=== PATIENT | female | born 1935 | race Caucasian/White ===

== ENCOUNTER → 2019-04-18 11:03 | Outpatient (CLI) | payer MEDICARE, MEDICAID ==
--- NOTE | 2019-04-22 09:28 | ST ---
PATIENT:JOVANNA LUNA MEDICAL RECORD: [id number] SEX: F LOCATION:[facility] ORDER #: ADMISSION DATE: 04/18/19 AGE OF PATIENT: 83 REFERRING PHYSICIAN: INTERPRETING PHYSICIAN: MAXIME WEI MD DATE OF SERVICE: 04/18/2019 PROCEDURE: Nuclear stress test. INDICATIONS: Angina, abnormal ECG, shortness of breath. She was exercised on standard Lexiscan protocol with 33 mCi of sestamibi injected at peak stress, 11 mCi used previously for rest images. FINDINGS: Gated SPECT reveals preserved ejection fraction at 74% with good wall motion and thickening and brightening throughout all segments. SPECT imaging: Cardiolite was used as myocardial perfusion agent. There is homogeneous uptake throughout all segments at rest and stress with no evidence of inducible ischemia or previous infarction. OVERALL IMPRESSION: 1. This is a normal nuclear stress test with no evidence of inducible ischemia or previous infarction. 2. Gated SPECT reveals a preserved ejection fraction at 74%. In this patient with ongoing symptomatology, the current scan does not suggest the presence of hemodynamically significant coronary artery disease. Evaluate noncardiac etiology of chest pain. TRANSINT:[id number] Voice Confirmation ID: [id number] DOCUMENT ID: [id number] MAXIME WEI MD at 0928 CC: HERNANDEZ KINGSTON [id number] DICTATION DATE: 04/19/19 0959 MILKING WORKER: 04/19/19 2143 DEP CLI 04/18/19 [facility] [address] [place] [address]
== END | disposition home or self-care (01) ==
LOC: D.HCCARDIO 11:03
PROVIDERS: ATTEND Internal Medicine Interventional Cardiology
DX: I20.9 Angina pectoris, unspecified (principal)

== ENCOUNTER → 2019-04-22 11:19 | Outpatient (CLI) | payer MEDICARE, MEDICAID ==
--- NOTE | 2019-04-23 14:43 | EC ---
PATIENT:JOVANNA LUNA DATE OF SERVICE: 04/22/19 SEX: F MEDICAL RECORD: [id number] DATE OF : 31 LOCATION:[facility] AGE OF PATIENT: 83 ADMISSION DATE: 04/22/19 REFERRING PHYSICIAN: INTERPRETING PHYSICIAN: MARCUS SALEH MD ECHOCARDIOGRAM REPORT ECHO CHARGES 4 ECHO COMPLETE Date: 04/22/19 CLINICAL DIAGNOSIS: HEART MURMUR ECHOCARDIOGRAPHIC MEASUREMENTS (adult normal given) AC root (d.<3.7cm) 3.1 cm LV Septum d (<1.2 cm> 1.0 cm Valve Excursion 1.3 cm LV Septum (systole) 1.2 cm Left Atria (s.<4.0cm> 3.8 cm LVPW d(<1.2cm) 1.1 cm RV (d.<2.3cm) 3.5 cm LVPW (sytole) 1.2 cm LV diastole(<5.6CM) 4.7 cm MV E-F(>70mm/sec) cm LV systole 3.5 cm LVOT Diameter 1.7 cm MV exc.(>10mm) 1.0 cm Est.ejection fraction (50-75%) % DOPPLER: LVIT cm/sec A 97.0 cm/sec E 73.0 cm/sec LA cm/sec RVSP 31 mmHg LVOT cm/sec AOP1/2T m/s Asc. Ao cm/sec RVOT 69 cm/sec RA cm/sec PA 94 cm/sec AV Gradient Peak mmHg AV Mean mmHg AV Area 1.4 cm MV Gradient Peak 5.27 mmHg MV Mean 2.21 mmHg MV Area cm COMMENTS: [place] Boner: 2 SEAN CHAUDHRY Institution Director: 3 Dr. [place] TAPE# PACS Pericardial Effusion N DATE OF SERVICE: Adequate 2D, color flow, spectral Doppler, and M-mode. No LVH. LV internal dimension is normal. Wall motion is normal. EF is greater than or equal to 55%. Aortic valve is sclerosed without stenosis by Doppler interrogation. Left atrium is normal. Mitral valve shows mitral annular calcification with only mild MR. Right-sided chambers are grossly normal. Mild TR. ECHOCARDIOGRAM REPORT [id number] JOVANNA LUNA TRANSINT:[id number] Voice Confirmation ID: [id number] DOCUMENT ID: [id number] MARCUS SALEH MD at 1443 CC: [id number] DICTATION DATE: 04/23/19 1302 SCAGLIOLA MECHANIC: 04/23/19 1355 DEP CLI 04/22/19 [facility] [id number] [place] [address]
== END | disposition home or self-care (01) ==
LOC: D.HCCECHO 11:19
PROVIDERS: ATTEND Internal Medicine Interventional Cardiology
DX: R01.1 Cardiac murmur, unspecified (principal)